=== PATIENT | female | born 1960 | race Caucasian/White ===

== ENCOUNTER 2020-11-11 18:13 | Emergency (ER) | payer MEDICAID, SELFPAY ==
[~2020-11-11] VITALS: Ht 157.5 cm; Wt 60.2 kg
[~2020-11-11 18:13] MED LIST: ALBU6.7H9 INH; ASPI-611 PO; IBUP-1573 PO
[2020-11-11 19:12] LABS: ALANINE AMINOTRANSFERASE 30 U/L (12-78); ALBUMIN 3.6 G/DL (3.4-5.0); ALBUMIN/GLOBULIN RATIO 1.1 (1.1-1.5); ALKALINE PHOSPHATASE 92 IU/L (46-116); ANION GAP 12 (8-16); ASPARTATE AMINO TRANSFERASE 14 U/L (10-37); BASOPHILS % (AUTO) 0.5 % (0-1); BILIRUBIN,TOTAL 0.3 MG/DL (0.1-1.0); BLOOD UREA NITROGEN 12 MG/DL (7-18); BUN/CREATININE RATIO 12.6 (6.6-38.0); CALCIUM 8.8 MG/DL (8.5-10.1); CHLORIDE 107 MMOL/L (99-107); CREATININE 0.95 MG/DL (0.40-0.90); EOSINOPHILS # (AUTO) 0.1 X10'3 (0-0.9); GLUCOSE 100 MG/DL (70-104); HEMATOCRIT 38.7 % (35.0-45.0); HEMOGLOBIN 12.9 g/dl (12.0-16.0); LYMPHOCYTES # (AUTO) 2.8 X10'3 (1.1-4.8); LYMPHOCYTES % (AUTO) 36.4 % (21-51); MEAN CORPUSCULAR HEMOGLOBIN 28.9 PG (27.0-31.0); MEAN CORPUSCULAR HGB CONC 33.4 g/dL (33.0-36.5); MEAN CORPUSCULAR VOLUME 86.6 FL (78-98); MEAN PLATELET VOLUME 8.1 FL (7.4-10.4); MONOCYTES # (AUTO) 0.6 X10'3 (0-0.9); MONOCYTES % (AUTO) 7.5 % (2-12); NEUTROPHILS # (AUTO) 4.3 X10'3 (1.8-7.7); NEUTROPHILS % (AUTO) 54.6 % (42-75); PLATELET COUNT 279 X10'3 (140-440); POTASSIUM 3.4 MMOL/L (3.5-5.1); RED BLOOD COUNT 4.47 X10'6 (4.20-5.60); SODIUM 144 MMOL/L (135-145); TOTAL CARBON DIOXIDE 24.8 MMOL/L (24-32); WHITE BLOOD COUNT 7.8 X10'3 (4.5-11.0); eGFR 60 ML/MIN
[2020-11-11 20:54] VITALS: BP 132/84
== END 2020-11-11 20:55 | disposition home or self-care (01) ==
LOC: ER 18:14
DX: R07.89 Other chest pain (principal); R42 Dizziness and giddiness; F15.90 Other stimulant use, unspecified, uncomplicated; Z98.890 Other specified postprocedural states; Z88.6 Allergy status to analgesic agent; Z88.5 Allergy status to narcotic agent; Z88.8 Allergy status to other drugs, medicaments and biological substances; Z79.82 Long term (current) use of aspirin; Z79.899 Other long term (current) drug therapy
CPT/HCPCS: 36415; 71045; 80053; 83880; 84484; 85025; 93005; 99285

== ENCOUNTER 2023-04-07 01:10 | Emergency (ER) | payer MEDICAID ==
[~2023-04-07] VITALS: Ht 157.5 cm; Wt 61.6 kg
[~2023-04-07 01:10] MED LIST changes: +ALBU6.7H14 INH; -ALBU6.7H9 INH
[2023-04-07 01:29] VITALS: BP 124/80; PULSE 71; RESP 18; TEMP 98.2; O2SAT 99
[2023-04-07 01:44] LABS: BASOPHILS % (AUTO) 0.2 % (0-1); EOSINOPHILS # (AUTO) 0.1 X10'3 (0-0.9); EOSINOPHILS % (AUTO) 2.1 % (0-6); HEMATOCRIT 39.5 % (35.0-45.0); HEMOGLOBIN 13.2 g/dl (12.0-16.0); LYMPHOCYTES # (AUTO) 3.7 X10'3 (1.1-4.8); LYMPHOCYTES % (AUTO) 56.4 % (21-51); MEAN CORPUSCULAR HEMOGLOBIN 28.2 PG (27.0-31.0); MEAN CORPUSCULAR HGB CONC 33.5 g/dL (33.0-36.5); MEAN CORPUSCULAR VOLUME 84.3 FL (78-98); MEAN PLATELET VOLUME 7.7 FL (7.4-10.4); MONOCYTES # (AUTO) 0.6 X10'3 (0-0.9); MONOCYTES % (AUTO) 9.2 % (2-12); NEUTROPHILS # (AUTO) 2.1 X10'3 (1.8-7.7); NEUTROPHILS % (AUTO) 32.1 % (42-75); PLATELET COUNT 281 X10'3 (140-440); RED BLOOD COUNT 4.68 X10'6 (4.20-5.60); RED CELL DISTRIBUTION WIDTH 14.4 % (11.5-14.5); WHITE BLOOD COUNT 6.5 X10'3 (4.5-11.0)
[2023-04-07 02:03] LABS: TOTAL CELLS COUNTED 100
[2023-04-07 02:05] LABS: PLATELET ESTIMATE NORMAL
[2023-04-07 02:07] LABS: ELLIPTOCYTES 1+
[2023-04-07 02:08] LABS: SCHISTOCYTES FEW
[2023-04-07 02:10] LABS: LARGE PLATELETS FEW
[2023-04-07 02:19] LABS: ALANINE AMINOTRANSFERASE 24 U/L (12-78); ALBUMIN 3.3 G/DL (3.4-5.0); ALKALINE PHOSPHATASE 94 IU/L (46-116); ANION GAP 8 (8-16); ASPARTATE AMINO TRANSFERASE 20 U/L (10-37); BILIRUBIN,TOTAL 0.1 MG/DL (0.1-1.0); BLOOD UREA NITROGEN 18 MG/DL (7-18); BUN/CREATININE RATIO 26.5 (10.0-20.0); CALCIUM 9.4 MG/DL (8.5-10.1); CHLORIDE 103 MMOL/L (99-107); CREATININE 0.68 MG/DL (0.40-0.90); GLUCOSE 90 MG/DL (70-104); SODIUM 140 MMOL/L (135-145); TOTAL CARBON DIOXIDE 29.5 MMOL/L (24-32); TOTAL PROTEIN 6.7 G/DL (6.4-8.2); eCRCL 67 ML/MIN; eGFR 87 ML/MIN
[2023-04-07 02:30] LABS: PRO BRAIN NATRIURETIC PEPTIDE 37 PG/ML (0-125)
[2023-04-07 02:41] LABS: POTASSIUM 3.9 MMOL/L (3.5-5.1)
== END 2023-04-07 04:17 | disposition left against medical advice (07) ==
LOC: ER 01:10
DX: R07.89 Other chest pain (principal); Z53.21 Procedure and treatment not carried out due to patient leaving prior to being seen by health care provider
CPT/HCPCS: 71045; 80053; 83880; 84484; 85007; 85025; 93005; 99281

== ENCOUNTER 2023-11-24 17:01 | Emergency (ER) | payer MEDICAID ==
[~2023-11-24] VITALS: Ht 157.5 cm; Wt 62.4 kg
[2023-11-24 17:02] VITALS: BP 134/79; PULSE 78; O2SAT 98
[2023-11-24] MEDS ORDERED: CYCL-1 PO (17:31)
[2023-11-24] MEDS ORDERED: NAPR-56 PO (17:31)
[2023-11-24 17:35] VITALS: RESP 17
[2023-11-24] MEDS: ketorolac trometh. 30mg/ml inj. IM ONE (17:35)
[2023-11-24 17:41] VITALS: TEMP 98
== END 2023-11-24 17:42 | disposition home or self-care (01) ==
LOC: ER 17:01
DX: S16.1XXA Strain of muscle, fascia and tendon at neck level, initial encounter (principal); G44.89 Other headache syndrome; F15.90 Other stimulant use, unspecified, uncomplicated; Z88.6 Allergy status to analgesic agent; Z88.5 Allergy status to narcotic agent; Z79.899 Other long term (current) drug therapy; Z79.82 Long term (current) use of aspirin; W22.8XXA Striking against or struck by other objects, initial encounter; Y93.89 Activity, other specified; Y92.89 Other specified places as the place of occurrence of the external cause; Y99.8 Other external cause status
CPT/HCPCS: 96372; 99284; J1885